=== PATIENT | female | born 1970 | race Two or more races ===

== ENCOUNTER 2021-01-03 14:49 | Emergency (ER) | payer OTHER ==
[~2021-01-03] VITALS: Ht 157.5 cm; Wt 59.0 kg
[2021-01-03 15:47] VITALS: BP 120/80
== END 2021-01-03 17:02 | disposition home or self-care (01) ==
LOC: ER 15:13
DX: S80.212A Abrasion, left knee, initial encounter (principal); S80.211A Abrasion, right knee, initial encounter; S69.81XA Other specified injuries of right wrist, hand and finger(s), initial encounter; E11.9 Type 2 diabetes mellitus without complications; W18.39XA Other fall on same level, initial encounter; Y93.01 Activity, walking, marching and hiking; Y92.89 Other specified places as the place of occurrence of the external cause; Y99.8 Other external cause status
CPT/HCPCS: 73130-TC

== ENCOUNTER 2021-02-02 11:34 | Emergency (ER) | payer OTHER ==
[~2021-02-02] VITALS: Ht 157.5 cm; Wt 59.0 kg
[2021-02-02 11:47] VITALS: BP 110/71
--- NOTE | 2021-02-02 11:59 | NUR ---
WIRE COILER AT BEDSIDE FOR XRAY
--- NOTE | 2021-02-02 13:35 | NUR ---
Patient discharged to home in stable condition. Written and verbal after care instructions given. Patient verbalizes understanding of instruction.
== END 2021-02-02 13:35 | disposition home or self-care (01) ==
LOC: ER 11:39
DX: M79.641 Pain in right hand (principal); E11.9 Type 2 diabetes mellitus without complications
CPT/HCPCS: 73130-TC